=== PATIENT | female | born 1955 | race Caucasian/White ===

== ENCOUNTER → 2017-05-09 | Outpatient (CLI) | payer OTHER ==
--- NOTE | 2017-05-09 14:37 | MM ---
Reason for exam: screening (asymptomatic). Last mammogram was performed 4 years and 5 months ago. History: Patient is postmenopausal. Right Mammotome Panel of the right breast, July 29, 2005. Physical Findings: A clinical breast exam by your physician is recommended on an annual basis and results should be correlated with mammographic findings. MG Screening Mammo w CAD Bilateral CC and MLO view(s) were taken. Prior study comparison: November 27, 2012, bilateral digital screening mammo w/CAD. May 17, 2011, bilateral digital screening mammo w/CAD. There are scattered fibroglandular densities. No significant changes when compared with prior studies. ASSESSMENT: Benign, BI-RAD 2 RECOMMENDATION: Routine screening mammogram of both breasts in 1 year.
--- NOTE | 2017-05-09 19:17 | HP ---
DATE OF DICTATION: 05/09/2017 CHIEF COMPLAINT: The patient is here for her routine gynecologic exam and mammogram. HISTORY OF PRESENT ILLNESS: This is a 61-year-old with an LMP of 2008. Her last pelvic exam and mammogram were in 2012. She is without gynecologic complaints and denies any postmenopausal bleeding. Past medical history is unremarkable. MEDICATIONS: None. ALLERGIES: NO KNOWN DRUG ALLERGIES. PAST SURGICAL HISTORY: 1. section x3 in 1977, 1979 and 1985. 2. Appendectomy in approximately 1980. 3. Plate was placed in her neck in 2013. 4. Colonoscopy in 2008. PAST OB HISTORY: Three sections. 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 SOCIAL HISTORY: She denies tobacco and drug use and has 0 to 1 alcoholic drinks per year. She has been with 2007. This is her third marriage. 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 FAMILY HISTORY: Father had an [place]. She denies family history of cancer of the breasts, uterus, ovaries or colon. REVIEW OF SYSTEMS: Weight has been stable. She denies respiratory, cardiac or GI problems. PHYSICAL EXAM: Blood pressure 129/63. Height 5 feet 1 inch. Weight 198 pounds. Temperature 97.2. Pulse 60. This is a well-developed, well-nourished white female who is alert and oriented x3, in no acute distress. HEENT is within normal limits. NECK: Supple without mass or thyromegaly. There is a lipoma in the left clavicular region which she states she has noticed for several months. She states she does have a history of lipomas in the past. This is soft and not suspicious in nature. CHEST AND LUNGS: Clear to auscultation. HEART: Regular rate and rhythm. Breasts are without mass or discharge. Axillary exam is negative of adenopathy. BACK: Negative for CVA tenderness. ABDOMEN: Soft, non-tender, without palpable masses. PELVIC EXAM: External genitalia reveal mild to moderate atrophy without lesions. Cervix and vagina reveal moderate atrophy without lesions. There is no evidence of prolapse. The uterus is mid position, non-gravid size and non- tender. There are no palpable adnexal masses or tenderness. Rectovaginal exam is negative for mass or tenderness and is negative for occult blood. EXTREMITIES: Non-tender. IMPRESSION: 1. Xryye-quje-hgng-old menopausal female with normal gynecologic exam. 2. Left periclavicular lipoma measuring approximately 4 x 5 cm. PLAN: 1. Pap smear was performed. 2. Self breast examination was discussed. 3. Mammogram will be done today. 4. Osteoporosis prevention was discussed. She states she had bone density screening in 2016 and states this was done on her leg. I have recommended bone density screening be done from the hip and low spine areas and we will plan on having her do this next year at the time of her annual examination. 5. She will return in one year. KUSH
== END ==
LOC: WWCWWP 07:36
PROVIDERS: ATTEND Obstetrics & Gynecology
DX: Z12.31 Encounter for screening mammogram for malignant neoplasm of breast (principal)

== ENCOUNTER → 2018-07-04 | Outpatient (CLI) | payer OTHER ==
[2018-07-04 10:51] VITALS: BP 101/72; PULSE 65; TEMP 98.1; BMI 37.8
--- NOTE | 2018-07-04 11:44 | P.HPOB ---
History of Present Illness H&P Date: 07/04/18 Chief Complaint: The patient is here for her routine gynecologic exam and mammogram. This is a 62-year-old G3 PIII with an LMP of 2008. The patient is without gynecologic complaints. Review of Systems The patient's weight has been stable over the last year. She denies respiratory , cardiac, or G.I. problems. 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 History of Any Multi-Drug Resistant Organisms: None Reported Past Surgical History: Appendectomy, Section (x3), Orthopedic Surgery ( neck plate 2014) Additional Past Surgical History / Comment(s): Colonoscopy 2008. Past Psychological History: No Psychological Hx Reported Smoking Status: Never smoker Past Alcohol Use History: Rare (0-1 per year) Past Drug Use History: None Reported Additional History: She's been since 2007. 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 - Past Family History Father Family Medical History: Myocardial Infarction ([place]) Medications and Allergies Home Medications Medication Instructions Recorded Confirmed Type Aspirin [Children's Aspirin] mg PO DAILY 07/04/18 History Ergocalciferol (Vitamin D2) PO WEEKLY 07/04/18 History [Vitamin D2] Allergies Allergy/AdvReac Type Severity Reaction Status Date / Time No Known Allergies Allergy Unverified 07/04/18 10:49 Exam Vital Signs Temp Pulse BP 07/04/18 10:49 98.1 F 65 101/72 Intake and Output 07/03/18 07/04/18 07/04/18 22:59 06:59 14:59 Other: Weight 90.718 kg Height 5'1", BMI 37.8. This is a well-developed well-nourished white female who is alert and oriented times 3 in no acute distress. HEENT: Within normal limits. NECK: Supple without mass or thyromegaly. CHEST AND LUNGS: Clear to auscultation. HEART: Regular rate and rhythm. BREASTS: Are without mass or discharge. AXILLARY EXAM: Negative for adenopathy. BACK: Negative for CVA tenderness. ABDOMEN: Soft, nontender, without palpable masses. PELVIC EXAM: Normal external genitalia with mild atrophy. Cervix and vagina appear normal with mild atrophy. There is no unusual discharge. There is no evidence of prolapse. The uterus is midposition, nongravid size and nontender. There are no palpable adnexal masses or tenderness. RECTAL EXAM: rectovaginal exam is negative for mass or tenderness and is negative for occult blood. EXTREMITIES: Nontender. IMPRESSION: 1. 62-year-old menopausal female with normal gynecologic exam. PLAN: 1. Pap smear was deferred since she had a normal one last year. 2. Self breast awareness was discussed with the patient. 3. Screening mammogram will be done today. 4. Osteoporosis prevention was discussed. I have recommended bone density screening. She would like to have this done next year at her annual exam. 5. Weight control was discussed. I have stressed the importance of good nutrition and regular exercise. 6. She will return in one year.
--- NOTE | 2018-07-05 13:35 | MM ---
Reason for exam: screening (asymptomatic). Last mammogram was performed 1 year and 2 months ago. History: Patient is postmenopausal. Right Mammotome Panel of the right breast, July 29, 2005. Physical Findings: A clinical breast exam by your physician is recommended on an annual basis and results should be correlated with mammographic findings. MG 3D Screening Mammo W/Cad Bilateral CC and MLO view(s) were taken. Prior study comparison: May 09, 2017, bilateral MG screening mammo w CAD. November 27, 2012, bilateral digital screening mammo w/CAD. There are scattered fibroglandular densities. There are benign appearing linear calcifications bilaterally. There is no discrete abnormality. ASSESSMENT: Benign, BI-RAD 2 RECOMMENDATION: Routine screening mammogram of both breasts in 1 year.
== END | disposition home or self-care (01) ==
LOC: WWCWWP 10:30
PROVIDERS: ATTEND Obstetrics & Gynecology
DX: Z12.31 Encounter for screening mammogram for malignant neoplasm of breast (principal)
CPT/HCPCS: 77063; 77067

== ENCOUNTER 2018-07-26 07:25 | Day surgery (SDC) | payer OTHER ==
[2018-07-24 09:33] VITALS: BMI 35.9
[~2018-07-26 07:25] MED LIST: HYDROmorphone 1 MG/ML 1 ML SYRINGE IVP PRN; LACTATED RINGERS 1,000 ML IV SCH; LIDOCAINE 1% 20 ML VIAL (10MG/ML) FOR IV START INTRADERMA PRN
[2018-07-26 08:05] VITALS: RESP 16; TEMP 97.9
[2018-07-26] MEDS ORDERED: PROPOFOL 10 MG/ML 20 ML VIAL IV ONE (08:55)
--- NOTE | 2018-07-26 08:59 | P.GSHP ---
History of Present Illness H&P Date: 07/26/18 Chief Complaint: Hematochezia This is a 62-year-old female who presents today for colonoscopy. Patient has issues with hematochezia. She denies any significant constipation or abdominal pain. 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 History of Any Multi-Drug Resistant Organisms: None Reported Past Surgical History: Appendectomy, Section Additional Past Surgical History / Comment(s): Colonoscopy, cervical fusion, cyst removed from thyroid, Past Anesthesia/Blood Transfusion Reactions: No Reported Reaction Smoking Status: Former smoker - Past Family History Father Family Medical History: Myocardial Infarction ([place]) Mother Family Medical History: Pulmonary Embolus Medications and Allergies Home Medications Medication Instructions Recorded Confirmed Type Ergocalciferol (Vitamin D2) 50,000 units PO TH 07/04/18 07/24/18 History [Vitamin D2] Allergies Allergy/AdvReac Type Severity Reaction Status Date / Time No Known Allergies Allergy Verified 07/26/18 07:45 Surgical - Exam Vital Signs Temp Pulse Resp BP Pulse Ox 97.9 F 85 16 126/82 96 07/26/18 08:00 07/26/18 08:00 07/26/18 08:00 07/26/18 08:00 07/26/18 08:00 - General well developed, no distress - Eyes PERRL - ENT normal pinna - Neck no masses - Respiratory normal expansion - Cardiovascular Rhythm: regular - Abdomen Abdomen: soft, non tender Assessment and Plan Assessment: GI bleed, hematochezia. We'll perform colonoscopy.
--- NOTE | 2018-07-26 09:17 | P.OP ---
Date of Procedure: 07/26/18 Preoperative Diagnosis: Hematochezia Postoperative Diagnosis: Internal hemorrhoids Procedure(s) Performed: Colonoscopy Anesthesia: MAC Surgeon: Wei Gant Pathology: none sent Condition: stable Disposition: PACU Description of Procedure: The patient's placed on the endoscopy table in the lateral position. She received IV sedation. Digital rectal exam was performed which revealed a few internal hemorrhoids. Flexible colonoscope was then placed patient anus and passed throughout the entire colon. The ileocecal valve was visualized. The cecum, ascending and transverse colon appeared normal. The descending and sigmoid colon appeared normal. Scope was then brought back the rectum and this appeared normal. The scope was retroflexed and there was internal hemorrhoids noted. Scope was withdrawn for patient. There is no evidence of GI bleed. The patient most likely had hematochezia related to internal hemorrhoids. The scope was withdrawn for patient.
[2018-07-26 09:34] VITALS: BP 110/69; PULSE 64
== END 2018-07-26 09:46 | disposition home or self-care (01) ==
LOC: ORWHC2ENDO 07:25
PROVIDERS: ATTEND Surgery
DX: K64.8 Other hemorrhoids (principal); K92.1 Melena; K21.9 Gastro-esophageal reflux disease without esophagitis; M19.90 Unspecified osteoarthritis, unspecified site; Z87.891 Personal history of nicotine dependence; Z98.1 Arthrodesis status
CPT/HCPCS: 45378; J2704

== ENCOUNTER → 2022-01-07 | Outpatient (CLI) | payer OTHER ==
--- NOTE | 2022-01-07 09:02 | NM ---
EXAMINATION TYPE: NM hepatobiliary w CCK DATE OF EXAM: 01/07/2022 COMPARISON: NONE HISTORY: Epigastric pain with reflux, nausea, and vomiting. TECHNIQUE: After the intravenous administration of 5.35 mCi Tc 99m Mebrofenin hepatobiliary scintigra phy is performed. Immediate images post injection. FINDINGS: There is satisfactory initial accumulation of tracer by the liver. The gallbladder is visualized wit hin 20 minutes. The small bowel activity is noted within 35 minutes. At one hour CCK was administer ed, patient was injected with 2.0 mcg of Kinevac, and gallbladder ejection fraction is calculated at 94 %, not deviated from the normal range. Therefore there is no scintigraphic evidence of cystic or common bile duct obstruction to suggest acute cholecystitis . IMPRESSION: . Ejection fraction is 94%, some consider this abnormal or a hyperkinetic response.
== END | disposition home or self-care (01) ==
LOC: RADNMMAIN 06:51
PROVIDERS: ATTEND Surgery
DX: R10.11 Right upper quadrant pain (principal); R10.13 Epigastric pain; R11.2 Nausea with vomiting, unspecified
CPT/HCPCS: 78227; A9537; J2805

== ENCOUNTER → 2022-01-11 | Outpatient (CLI) | payer OTHER ==
[2022-01-11 13:10] VITALS: BP 133/75; PULSE 82; RESP 17; TEMP 97.8
--- NOTE | 2022-01-11 13:51 | P.HPOB ---
History of Present Illness H&P Date: 01/11/22 Chief Complaint: The patient is here for her routine gynecologic exam and ma mmogram. This is a 66-year-old with an LMP of 2009. The patient is without gynecologic complaints and denies any postmenopausal bleeding. Review of Systems She is gained about 40 pounds over the past 3-1/2 years. Respiratory: Some shortness of breath on exertion. She denies cardiac or GI problems. 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 History of Any Multi-Drug Resistant Organisms: None Reported Past Surgical History: Appendectomy, Section Additional Past Surgical History / Comment(s): Colonoscopy 2018(next after 10yr), cervical fusion, cyst removed from thyroid. Past Anesthesia/Blood Transfusion Reactions: No Reported Reaction Past Psychological History: No Psychological Hx Reported Smoking Status: Never smoker Past Alcohol Use History: None Reported Additional Past Alcohol Use History / Comment(s): smoked for 10 yrs on and off, quit 30 yrs ago, 1 PPD Past Drug Use History: None Reported Additional History: She has been a since 2019 and is not seeing anybody at this time. - Past Family History Father Family Medical History: Myocardial Infarction ([place]) Mother Family Medical History: Pulmonary Embolus Medications and Allergies Home Medications Medication Instructions Recorded Confirmed Type Ergocalciferol (Vitamin D2) 50,000 units PO TH 07/04/18 01/11/22 History [Vitamin D2] Allergies Allergy/AdvReac Type Severity Reaction Status Date / Time No Known Allergies Allergy Verified 01/11/22 13:06 Exam Vital Signs Temp Pulse Resp BP Pulse Ox 01/11/22 13:07 97.8 F 82 17 133/75 95 Intake and Output 01/10/22 01/11/22 01/11/22 22:59 06:59 14:59 Other: Weight 110.223 kg Height 5 foot 1 inch, weight 243 pounds, BMI 45.9. This is a well-developed well-nourished heavyset white female who is alert and oriented times 3 in no acute distress. HEENT: Within normal limits. NECK: Supple without mass or thyromegaly. CHEST AND LUNGS: Clear to auscultation. HEART: Regular rate and rhythm. BREASTS: Are without mass or discharge. AXILLARY EXAM: Negative for adenopathy. BACK: Negative for CVA tenderness. ABDOMEN: Soft, obese, nontender, without palpable masses. PELVIC EXAM: Normal external genitalia with mild atrophy. Cervix and vagina appear normal with mild atrophy. There is no unusual discharge. There is no evidence of prolapse. The uterus is midposition, nongravid size and nontender. There are no palpable adnexal masses or tenderness. Bimanual examination is somewhat limited secondary to her size. RECTAL EXAM: Rectovaginal exam is negative for mass or tenderness and is negative for occult blood. EXTREMITIES: Nontender. IMPRESSION: 1. 66-year-old menopausal female with normal gynecologic exam. 2. Overweight with weight gain over the past few years. PLAN: 1. Pap smear cotest was performed. If this is negative we will discontinue Pap smears. 2. Self breast awareness was discussed with the patient. We have also discussed symptoms associated with inflammatory breast cancer. 3. Screening mammogram was done today. 4. Osteoporosis prevention was discussed. I have stressed the importance of adequate calcium, vitamin D and regular exercise. Recommended amounts of calcium and vitamin D were also discussed. I have recommended bone density testing since this has not been done for many years. The order slip was given to the patient for this. 5. We have had a long discussion regarding weight control. I have stressed the importance of good nutrition, regular meals, adequate fiber and regular exercise. 6. She was advised to return in one year for her annual well woman exam.
== END ==
LOC: WWCWWP 12:35
PROVIDERS: ATTEND Obstetrics & Gynecology
DX: Z01.419 Encounter for gynecological examination (general) (routine) without abnormal findings (principal); Z12.31 Encounter for screening mammogram for malignant neoplasm of breast; E66.3 Overweight; M19.90 Unspecified osteoarthritis, unspecified site; Z87.891 Personal history of nicotine dependence; Z78.0 Asymptomatic menopausal state; Z68.42 Body mass index [BMI] 45.0-49.9, adult
CPT/HCPCS: 77063; 77067

== ENCOUNTER → 2022-01-13 | Outpatient (CLI) | payer OTHER ==
--- NOTE | 2022-01-13 15:56 | US ---
EXAMINATION TYPE: US thyroid st tissue head/neck DATE OF EXAM: 01/13/2022 COMPARISON: NONE CLINICAL HISTORY: R22.1. Left neck palpable mass for the past month without pain. Left palpable neck mass scanned in supraclavicular area. Hypoechoic area seen in palpable area of mas s measuring 4.2 x 3.1 x 2.7cm. Contralateral area scanned for comparison. IMPRESSION: 1. Suspicious area of thickening within the left supraclavicular region. The finding is nonspecific. Recommend CT neck with contrast for additional evaluation. Supraclavicular adenopathy should be consi dered.
== END | disposition home or self-care (01) ==
LOC: RADUSWWP 14:01
PROVIDERS: ATTEND Surgery
DX: R22.1 Localized swelling, mass and lump, neck (principal)
CPT/HCPCS: 76536

== ENCOUNTER → 2022-01-18 | Outpatient (CLI) | payer OTHER ==
--- NOTE | 2022-01-18 10:01 | CT ---
EXAMINATION TYPE: CT soft tissue neck w con DATE OF EXAM: 01/18/2022 9:19 AM COMPARISON: CT dated 01/23/2013 HISTORY: Neck mass CT DLP: 461.10 mGycm Automated exposure control for dose reduction was used. CONTRAST: CT scan of the neck is performed following with IV Contrast, patient injected with 100 mL of Isovue 3 00. Axial images are obtained, coronal and sagittal reformatted images are reviewed. FINDINGS: A tiny metallic marker was placed at the area of interest. Asymmetrically prominent fat is seen at th at location measuring up to 5.3 cm compared to 3.6 cm on the right side which could represent asymmet rical fat versus underlying lipoma. Please correlate clinically. Unremarkable nasopharynx, oropharynx, hypopharynx, larynx, trachea and visualized portion of the esop hagus. Unremarkable thyroid gland. Artifacts from dental work. Unremarkable visualized portion of the parotid and submandibular salivary glands. Patent major neck vessels. No pathologically enlarged lymph nodes in the neck. C5-6 anterior spinal f ixation with anterolisthesis of C4 over C5 and marked degenerative changes at C4-5 level. Severe righ t C7-T1 facet osteoarthropathy. IMPRESSION: Asymmetrically more prominent fat in the left side of the neck at the area of interest as compared to the right side as described above, which could be due to asymmetrically more prominent fat versus un derlying lipoma, please correlate clinically. Further surgical consultation can be considered. No other definite neck lesion or suspicious lymphadenopathy identified. Incidental findings as descri bed above.
== END | disposition home or self-care (01) ==
LOC: RADCTMAIN 08:36
PROVIDERS: ATTEND Surgery
DX: R22.1 Localized swelling, mass and lump, neck (principal)
CPT/HCPCS: 70491; Q9967

== ENCOUNTER → 2022-05-20 | Outpatient (CLI) | payer OTHER ==
--- NOTE | 2022-05-20 10:54 | CT ---
EXAMINATION TYPE: CT abdomen wo/w con DATE OF EXAM: 05/20/2022 COMPARISON: NONE HISTORY: 66-year-old female R10.11, Right upper quadrant abdominal pain and vomiting. TECHNIQUE: Contiguous axial scanning of the abdomen before and after administration of 100 ml Isovue 300 IV contrast. Delayed images through the kidneys and coronal/sagittal reconstructions performed. CT DLP: 1897.4 mGycm Automated exposure control for dose reduction was used. FINDINGS: Heart upper limits of normal in size without pericardial effusion. Lung bases clear without pleural effusion. There is a small hiatal hernia. Liver enlarged at 18.9 cm. No focal lesion seen. The venous system is patent. No biliary ductal dilat ation. Cholecystectomy clips. 9 mm low-density nodule right adrenal gland is indeterminate. Statistically represents a benign adren al adenoma. Left adrenal gland, right kidney, spleen, and pancreas within normal limits. 1.9 cm parapelvic cyst left kidney. No dilated small bowel, free fluid, or free air. No mesenteric or retroperitoneal lymphadenopathy. Oral contrast progressed into the transverse colon. There is moderate stool burden. No pericolonic in flammatory change. Pelvis not imaged. Bones: Severe hypertrophic facet arthropathy lower lumbar spine. Grade 1, nearly grade 2 anterolisthe sis L4-L5. Small endplate Schmorl's nodes lower lumbar spine with anterior endplate spondylosis. IMPRESSION: 1. A 9 MM LOW-DENSITY NODULE RIGHT ADRENAL GLAND IS INDETERMINATE, STATISTICALLY REPRESENTS A BENIGN ADRENAL ADENOMA. A 6-12 MONTH FOLLOW-UP CT CAN BE PERFORMED 2. SMALL HIATAL HERNIA. 3. MODERATE STOOL BURDEN. 4. SEVERE HYPERTROPHIC FACET ARTHROPATHY LOWER LUMBAR SPINE WITH GRADE 1, NEARLY GRADE 2 ANTEROLISTHE SIS AT L4-L5.
== END | disposition home or self-care (01) ==
LOC: RADCTMAIN 07:32
PROVIDERS: ATTEND Family Medicine
DX: K44.9 Diaphragmatic hernia without obstruction or gangrene (principal); M43.16 Spondylolisthesis, lumbar region
CPT/HCPCS: 74170; Q9967 ×2

== ENCOUNTER → 2023-01-13 | Outpatient (CLI) | payer MEDICARE, OTHER ==
--- NOTE | 2023-01-13 11:13 | BD ---
EXAMINATION TYPE: Axial Bone Density DATE OF EXAM: 01/13/2023 CLINICAL HISTORY: 67 years old Female. ICD-10 CODE: Z78.0 asymptomatic menopausal Height: 60.5in Weight: 236lb FRAX RISK QUESTIONS: History of Fracture in Adulthood: yes Secondary Osteoporosis: RISK FACTORS HISTORY OF: History of Wrist Fracture: yes When: unsure Active: yes Postmenopausal woman: yes MEDICATIONS: Additional Medications: vitamin d Additional History: wrist and foot fx EXAM MEASUREMENTS: Bone mineral densitometry was performed using the [employer] System. Bone mineral density as measured about the Lumbar spine is: ----- L1-L4(G/cm2): T Score Values are as follows: ----- L1: 0.3 ----- L2: 0.2 ----- L3: 0.4 ----- L4: 0.4 ----- L1-L4: 0.4 Z Score Values are as follows: ----- L1: 0.7 ----- L2: 0.6 ----- L3: 0.8 ----- L4: 0.8 ----- L1-L4: 0.[address] [facility] Bone mineral density about the R hip (g/cm2): 1.123 Bone mineral density about the L hip (g/cm2): 1.163 T Score values are as follows: -----R Neck: -0.6 -----L Neck: -0.1 -----R Total: 0.9 -----L Total: 1.2 Z Score values are as follows: -----R Neck: 0.1 -----L Neck: 0.6 -----R Total: 1.3 -----L Total: 1.6 FRAX%s: The graph provided illustrates a 10.4% chance for a major osteoporotic fx and a 0.5% chance f or the hips probability for fx in 10 years time. IMPRESSION: Normal (Values between +1 and -1 indicate normal bone mass). Consider repeating this study in 5 year s or sooner if there is some new clinical indication. NOTE: T-SCORE=SD OF THE YOUNG ADULT MEAN.
--- NOTE | 2023-01-16 12:33 | MM ---
Reason for Exam: Screening (asymptomatic). Last screening mammogram was performed 12 month(s) ago. Patient History: Menarche at age 16. First Full-Term at age 22. Postmenopausal. Patient has history of breast feeding. 07/29/2005, Core Biopsy on the Right side. Risk Values: Maris 5 year model risk: 1.6%. NCI Lifetime model risk: 6.1%. Prior Study Comparison: 11/27/2012 Bilateral Screening Mammogram, [facility]. 05/09/2017 Bilateral Screening Mammogram, [facility]. 07/04/2018 Bilateral Screening Mammogram, [facility]. 01/11/2022 Bilateral Screening Mammogram, [facility]. Tissue Density: There are scattered fibroglandular densities. Findings: Analyzed By CAD. Benign-appearing vascular calcification is redemonstrated scattered throughout the bilateral breasts. Benign-appearing bilateral axillary lymph nodes are again seen. There is no suspicious group of microcalcifications or new suspicious mass in either breast. Overall Assessment: Benign, BI-RAD 2 Management: Screening Mammogram of both breasts in 1 year. A clinical breast exam by your physician is recommended on an annual basis and results should be correlated with mammographic findings. Electronically signed and approved by: Israel Chen M.D.
== END | disposition home or self-care (01) ==
LOC: RADMAMWWP 08:57
PROVIDERS: ATTEND Family Medicine
DX: Z12.31 Encounter for screening mammogram for malignant neoplasm of breast (principal); M85.89 Other specified disorders of bone density and structure, multiple sites; Z78.0 Asymptomatic menopausal state
CPT/HCPCS: 77063; 77067; 77080

== ENCOUNTER → 2024-01-15 | Outpatient (CLI) | payer MEDICARE, OTHER ==
--- NOTE | 2024-01-18 08:40 | MM ---
Reason for Exam: Screening (asymptomatic). Last screening mammogram was performed 12 month(s) ago. Patient History: Menarche at age 16. First Full-Term at age 22. Postmenopausal. Patient has history of breast feeding. 07/29/2005, Core Biopsy on the Right side. Sister had breast cancer at or over age 50. Risk Values: Maris 5 year model risk: 3.4%. NCI Lifetime model risk: 12.1%. Prior Study Comparison: 05/09/2017 Bilateral Screening Mammogram, [facility]. 07/04/2018 Bilateral Screening Mammogram, [facility]. 01/11/2022 Bilateral Screening Mammogram, [facility]. 01/13/2023 Bilateral MG 3D screening mammo w/cad, [facility]. Tissue Density: There are scattered areas of fibroglandular density. Findings: Analyzed By CAD. There is no suspicious group of microcalcifications or new suspicious mass in either breast. Benign-appearing calcifications noted. Stable chronic nodularity outer margin right breast. Stable benign appearing axillary lymph nodes. Overall Assessment: Benign, BI-RAD 2 Management: Screening Mammogram of both breasts in 1 year. . Patient should continue monthly self-breast exams. A clinical breast exam by your physician is recommended on an annual basis. This exam should not preclude additional follow-up of suspicious palpable abnormalities. Note on Maris scores and lifetime risk: 1. A Maris score greater than 3% is considered moderate risk. If this is the case, consider specialist referral to assess eligibility for a risk reducing agent. 2. If overall lifetime risk for the development of breast cancer is 20% or higher, the patient may qualify for future screening with alternating mammogram and breast MRI. Electronically signed and approved by: Pietro Maldonado M.D. Radiologis
== END | disposition home or self-care (01) ==
LOC: RADMAMWWP 08:47
PROVIDERS: ATTEND Family Medicine
DX: Z12.31 Encounter for screening mammogram for malignant neoplasm of breast (principal); Z80.3 Family history of malignant neoplasm of breast; Z78.0 Asymptomatic menopausal state
CPT/HCPCS: 77063; 77067

== ENCOUNTER → 2025-02-17 | Outpatient (CLI) | payer MEDICARE, OTHER ==
--- NOTE | 2025-02-17 10:15 | MM ---
Reason for Exam: Screening (asymptomatic). Last mammogram was performed 1 year(s) and 1 month(s) ago. Patient History: Menarche at age 16. First Full-Term at age 22. Postmenopausal. Patient has history of breast feeding. 07/29/2005, Core Biopsy on the Right side. Sister had breast cancer at or over age 50. Risk Values: Maris 5 year model risk: 3.5%. NCI Lifetime model risk: 11.6%. Prior Study Comparison: 01/11/2022 Bilateral Screening Mammogram, [facility]. 01/13/2023 Bilateral MG 3D screening mammo w/cad, [facility]. 01/15/2024 Bilateral MG 3D screening mammo w/cad, [facility]. Tissue Density: There are scattered areas of fibroglandular density. Findings: Analyzed By CAD. There is benign-appearing vascular calcification bilaterally redemonstrated. Benign-appearing bilateral axillary lymph nodes are redemonstrated. There there are new circumscribed masses of the posterior left right breast outer aspect just inferior to the stable lymph nodes. Overall Assessment: Incomplete: need additional imaging evaluation, BI-RAD 0 Management: Diagnostic Breast Ultrasound of the right breast. Targeted ultrasound right breast. Patient should continue monthly self-breast exams. A clinical breast exam by your physician is recommended on an annual basis. This exam should not preclude additional follow-up of suspicious palpable abnormalities. Note on Maris scores and lifetime risk: 1. A Maris score greater than 3% is considered moderate risk. If this is the case, consider specialist referral to assess eligibility for a risk reducing agent. 2. If overall lifetime risk for the development of breast cancer is 20% or higher, the patient may qualify for future screening with alternating mammogram and breast MRI. [facility], , 02/17/2025 10:11 AM. Electronically signed and approved by: Israel Chen M.D.
== END | disposition home or self-care (01) ==
LOC: RADMAMWWP 08:35
PROVIDERS: ATTEND Family Medicine
DX: Z12.31 Encounter for screening mammogram for malignant neoplasm of breast (principal); R92.323 Mammographic fibroglandular density, bilateral breasts; Z78.0 Asymptomatic menopausal state; Z80.3 Family history of malignant neoplasm of breast
CPT/HCPCS: 77063; 77067

== ENCOUNTER → 2025-02-21 | Outpatient (CLI) | payer MEDICARE, OTHER ==
--- NOTE | 2025-02-21 08:34 | USB ---
Reason for Exam: Additional evaluation requested from abnormal screening. Patient History: Menarche at age 16. First Full-Term at age 22. Postmenopausal. Patient has history of breast feeding. 07/29/2005, Core Biopsy on the Right side. Sister had breast cancer at or over age 50. Risk Values: Maris 5 year model risk: 3.5%. NCI Lifetime model risk: 11.6%. Technique: Method: Targeted. Doppler: Color. Patient Position: Supine. Prior Study Comparison: 01/13/2023 Bilateral MG 3D screening mammo w/cad, [facility]. 01/15/2024 Bilateral MG 3D screening mammo w/cad, [facility]. 02/17/2025 Bilateral MG 3D screening mammo w/cad, [facility]. Findings: The upper outer quadrant of the right breast, the axilla of the right breast and the retroareolar of the right breast were scanned. Targeted right breast ultrasound. There is a 1.8 x 1.1 x 1.7 cm lobulated isoechoic area without vascularity during real-time scanning marked by the technologist but appears to blend with adjacent soft tissue several images. No additional solid or cystic mass identified. No suspicious axillary adenopathy seen. Overall Assessment: Probably benign, BI-RAD 3 Management: Diagnostic Mammogram of the right breast in 6 months. Diagnostic Breast Ultrasound of the right breast in 6 months. Precautionary short-term follow-up. A clinical breast exam by your physician is recommended on an annual basis and results should be correlated with mammographic findings. This exam should not preclude additional follow-up of suspicious palpable abnormalities. Results were given to the patient verbally at the time of exam. [facility], , 02/21/2025 8:30 AM. Electronically signed and approved by: Israel Chen M.D.
== END | disposition home or self-care (01) ==
LOC: RADUSWWP 08:05
PROVIDERS: ATTEND Family Medicine
DX: R92.8 Other abnormal and inconclusive findings on diagnostic imaging of breast (principal); Z78.0 Asymptomatic menopausal state; Z80.3 Family history of malignant neoplasm of breast